=== PATIENT | female | born 1960 | race Caucasian/White ===

== ENCOUNTER → 2017-07-05 | Outpatient (CLI) | payer BC ==
--- NOTE | 2017-07-05 16:25 | PCVCIMAG ---
APPROVED REPORT Exam: Stress Echocardiogram Indication: Chest pain , Dyspnea , Hypertension Patient Location: Echo lab Stress Nurse: Isabella Saucedo RN Status: routine Ht: 5 ft 2 in HR: 92 bpm BP: 108/68 mmHg Rhythm: NSR Procedure The patient underwent an Exercise Stress Test using the Ede Protocol. Blood pressure, heart rate, and EKG were monitored. An Echocardiogram was performed by chemical research technician in four stages in quad fashion. At peak stress, four selected images were obtained and placed side by side with resting images for comparison. Stress Test Details Stress Test: Exercise stress testing was performed using a Ede protocol. HR Resting HR: 93 bpmMax Heart Rate (APMHR): 163 bpm Max HR Achieved: 173 bpmTarget HR (85% APMHR): 138 bpm % of APMHR: 106 Recovery HR: 118 bpm HR response to stress: Normal HR response to stress BP Resting BP: 108/68 mmHg Max BP: 164/62 mmHg Recovery BP: 118/68 mmHg ECG Resting ECG: Sinus Rhythm, resting ST segment abnormalities in the inferolateral leads Stress ECG: Sinus Rhythm, NSSTT changes ST Change: nondiagnostic Arrhythmia: None Recovery ECG: Sinus Rhythm Recovery Arrhythmia: None Clinical Reason for Termination: Maximal effort Exercise duration: 5 min 30 sec Highest Stage Achieved: Stage 2: 2.5 mph at 12% grade. Exercise capacity: 7 METs Overall Exercise Capacity for Age: Normal Pre-Stress Echo The resting Echocardiogram showed normal left ventricular contractility with an estimated Ejection Fraction of about >55%. Normal wall motion in all segments on baseline images. Post-Stress Echo The stress Echocardiogram showed normal left ventricular contractility with an estimated Ejection Fraction of about 65%. Normal augmentation of wall motion in all segments on post stress images. Clinical No clinical or ECG evidence for ischemia. Conclusion Clinical Response: Non-ischemic Exercise Capacity: Below Average Stress ECG Response: Non-ischemic Stress Echo Images: Non-ischemic The left ventricle is normal in size and wall thickness in both the rest and stress images. Trace mitral regurgitation. Other Information Study Quality: Adequate <Conclusion> The left ventricle is normal in size and wall thickness in both the rest and stress images. Trace mitral regurgitation.
== END | disposition home or self-care (01) ==
LOC: PCVCIMAG 15:31
PROVIDERS: ATTEND Internal Medicine Cardiovascular Disease
DX: I34.0 Nonrheumatic mitral (valve) insufficiency (principal); I10 Essential (primary) hypertension; E03.9 Hypothyroidism, unspecified; R94.31 Abnormal electrocardiogram [ECG] [EKG]; Z90.49 Acquired absence of other specified parts of digestive tract; Z82.49 Family history of ischemic heart disease and other diseases of the circulatory system; Z88.8 Allergy status to other drugs, medicaments and biological substances; Z79.899 Other long term (current) drug therapy
CPT/HCPCS: 93325; 93351; G0463